=== PATIENT | female | born 2000 | race Caucasian/White ===

== ENCOUNTER 2019-05-30 19:31 | Emergency (ER) | payer OTHER ==
[~2019-05-30] VITALS: Ht 162.6 cm; Wt 64.4 kg
[2019-05-30 19:40] VITALS: BP 121/76
--- NOTE | 2019-05-30 19:40 | NUR ---
TO BED # 04 AMBULATORY
--- NOTE | 2019-05-30 19:44 | NUR ---
PT TAKEN TO BED 4
[2019-05-30] MEDS ORDERED: NACL 0.9% 1,000 ML IV ONE (19:55)
--- NOTE | 2019-05-30 20:12 | NUR ---
19 YO F BIB SELF AND BOYFRIEND PRESENTS TO ED C/O 01/31 DIFFUSE ABD PAIN THAT PT DESCRIBES TENDERNESS X SINCE 1300 ACCOMPANIED BY N/V. DENIES DIARRHEA/CONSTIPATION. LAST BM TODAY; NORMAL. DENIES LOWER BACK PAIN, URINARY BURNING/PAIN. PT ALSO REPORTS SUBJECTIVE FEVER, CHILLS. -- PT AWAKE, A/O X 4. PT HAUNCHED OVER IN PAIN. CALM, COOPERATIVE. FOLLOWS COMMANDS. -- SKIN PINK, WARM, DRY. BREATHING EVEN, UNLABORED. PMH-- DENIES RX-- DENIES
--- NOTE | 2019-05-30 20:56 | NUR ---
DR. SMITH EVALUATING AT BEDSIDE.
--- NOTE | 2019-05-30 20:56 | NUR ---
Dr. Fong examining patient.
[2019-05-30] MEDS ORDERED: KETOROLAC 30 MG/ML VIAL IVP ONE (21:00)
[2019-05-30] MEDS ORDERED: ONDANSETRON 4 MG/2 ML VIAL IVP ONE (21:00)
--- NOTE | 2019-05-30 21:25 | NUR ---
PT RECIEVED 30 MG IVP TORADOL FOR 7 ABD PAIN. WILL REASSESS.
--- NOTE | 2019-05-30 21:48 | NUR ---
PT REPORTS IMPROVED PAIN; 5/10 PAIN. PT STATES "IT ONLY HURTS WHEN I MOVE BUT IT IS TOLERABLE".
[2019-05-30 21:50] VITALS: BP 118/75
--- NOTE | 2019-05-30 21:50 | NUR ---
Patient discharged with v/s stable. Written and verbal after care instructions given and explained. Patient alert, oriented and verbalized understanding of instructions. Ambulatory with steady gait. All questions addressed prior to discharge. ID band removed. Patient advised to follow up with PMD. Rx of Zofran, Motrin 600 mg, Marion given. Patient educated on indication of medication including possible reaction and side effects. Opportunity to ask questions provided and answered.
== END 2019-05-30 21:50 | disposition home or self-care (01) ==
LOC: MED 19:31
DX: R10.84 Generalized abdominal pain (principal); R11.2 Nausea with vomiting, unspecified; R50.9 Fever, unspecified
CPT/HCPCS: 81002; 81025; 96361; 96374; 96375; 99283; J1885; J2405; J7030

== ENCOUNTER 2020-04-23 22:23 | Emergency (ER) | payer OTHER ==
[~2020-04-23] VITALS: Ht 162.6 cm; Wt 59.0 kg
[2020-04-23 22:30] VITALS: BP 138/98
--- NOTE | 2020-04-23 22:30 | NUR ---
PT AMBULATED TO BED #4
--- NOTE | 2020-04-23 22:35 | NUR ---
20 YO F BIB SELF FOR C/C OF 3/10 R SHOULDER PAIN POST DISLOCATION 30 MIN AGO. PT STATES ITS 8/10 PAIN WHEN TRYING TO MOVE IT. PT STATES HER SHOULDER GETS FREQUENTLY DISLOCATED. STATES SHE FELT IT POP BACK INTO PLACE. NO OBVIOUS DEFORMITIES SEEN DURING VISUAL EXAM. RADIAL PULSES ARE EQUAL AND REGULAR. SENSATION INTACT ON R FOREARM. PT DENIES OTC MEDS. BED LOCKED AND IN LOWEST POSITION. SIDE RAILS X1. NKA MED HX: FREQUENT DISLOCATION OF R SHOULDER NO RX
--- NOTE | 2020-04-23 22:38 | NUR ---
ERMD EVALUATING PT
[2020-04-23] MEDS ORDERED: IBUPROFEN 600 MG TAB PO ONE (22:40)
[2020-04-23] MEDS ORDERED: HYDROcodone/APAP 5/325 MG 1 TAB TAB PO ONE (22:45)
--- NOTE | 2020-04-23 22:56 | NUR ---
SLING SIZE LARGE PLACED ON PT L ARM, FASTENED TO SIZE
[2020-04-23 23:25] VITALS: BP 138/98
== END 2020-04-23 23:25 | disposition home or self-care (01) ==
LOC: MED 22:23
DX: S43.004A Unspecified dislocation of right shoulder joint, initial encounter (principal); Y09 Assault by unspecified means; Y93.89 Activity, other specified; Y92.89 Other specified places as the place of occurrence of the external cause; Y99.8 Other external cause status
CPT/HCPCS: 73030; 99283; Q0092